=== PATIENT | male | born 1990 | race Caucasian/White ===

== ENCOUNTER 2021-09-10 07:41 | Inpatient (IN) | payer SELFPAY ==
[~2021-09-10] VITALS: Ht 188 cm; Wt 89.0 kg
[2021-09-10] MEDS ORDERED: LORAZEPAM 2MG/ML CPJ IV ONE (08:15)
[2021-09-10] MEDS ORDERED: CHLORDIAZEPOXIDE 25MG CAPSULE PO ONE (08:15)
[2021-09-10] MEDS ORDERED: FAMOTIDINE 20MG/2ML VIAL IV ONE (08:15)
[2021-09-10] MEDS ORDERED: ONDANSETRON HCL 4MG/2ML INJ IV ONE ×2 (08:15→10:00)
[2021-09-10 08:18] LABS: BASOPHILS % 1.2 % (0.0-2.0); EOSINOPHILS % 1.2 % (0.0-5.0); HEMATOCRIT. 45.3 % (42.0-52.0); HEMOGLOBIN. 15.6 g/dL (14.0-18.0); LYMPHOCYTES % 20.8 % (20.0-50.0); MEAN CORPUSCULAR HEMOGLOBIN 33.4 pg (28.0-32.0); MEAN CORPUSCULAR VOLUME 97.3 fL (80.0-94.0); MEAN PLATELET VOLUME 6.8 fl (7.4-10.4); MONOCYTES % 8.6 % (2.0-8.0); NEUTROPHILS % 68.2 % (40.0-76.0); PLATELET 247 x1000/uL (130-400); RED BLOOD CELL COUNT 4.66 mill/uL (4.7-6.1); RED CELL DISTRIBUTION WIDTH 12.7 % (11.6-14.6)
[2021-09-10 08:27] LABS: PROTHROMBIN TIME 10.9 sec (9.6-11.0)
[2021-09-10 08:28] LABS: CHLORIDE 103 mEq/L (98-107)
[2021-09-10] MEDS ORDERED: SODIUM CHLORIDE 0.9% 1,000 ML IV ONE ×2 (10:15→12:00)
[2021-09-10] MEDS ORDERED: METOCLOPRAMIDE HCL 10MG/2ML VIAL IV ONE (10:15)
[2021-09-10] MEDS ORDERED: DOCUSATE SODIUM 100MG CAPSULE PO PRN (13:45)
[2021-09-10] MEDS ORDERED: IPRATROPIUM/ALBUTEROL 0.5-3(2.5)MG/3ML NEB NEB PRN (13:45)
[2021-09-10] MEDS ORDERED: MAGNESIUM/ALUMINUM HYDROXIDE/SIMETHICONE 30ML UDC PO PRN (13:45)
[2021-09-10] MEDS ORDERED: ONDANSETRON HCL 4MG/2ML INJ IV PRN (13:45)
[2021-09-10] MEDS ORDERED: KETOROLAC 15MG/ML VIAL IV PRN (13:45)
[2021-09-10] MEDS ORDERED: ZOLPIDEM TARTRATE 5MG TABLET PO PRN (13:45)
[2021-09-10] MEDS ORDERED: NITROGLYCERIN 0.4MG TABLET SL SL PRN (13:45)
[2021-09-10] MEDS ORDERED: GUAIFENESIN 200MG/10ML SUGAR FREE UDC PO PRN (13:45)
[2021-09-10] MEDS ORDERED: CLONIDINE 0.1MG TABLET PO PRN (13:45)
[2021-09-10] MEDS ORDERED: ACETAMINOPHEN 325MG TABLET PO PRN ×2 (13:45)
[2021-09-10 14:31] LABS: ETHANOL BLOOD < 10 mg/dL; TOTAL IRON BINDING CAPACITY 443 ug/dL (250-450)
[2021-09-10 14:50] LABS: FOLIC ACID (FOLATE) SERUM 11.4 ng/mL (>5.38)
[2021-09-10] MEDS ORDERED: MVI, ADULT NO.1 10 ML, FOLIC ACID 1 MG, THIAMINE HCL 100 MG in SODIUM CHLORIDE 0.9% 1,0... IV SCH ×4 (15:00)
[2021-09-10] MEDS ORDERED: LORAZEPAM 2MG/ML CPJ IV PRN (15:15)
[2021-09-10 16:00] VITALS: BP 123/74
[2021-09-10] MEDS ORDERED: ENOXAPARIN 40MG/0.4ML SYR SUBCUT SCH (17:15)
[2021-09-10 17:37] VITALS: BP 140/78
[2021-09-10 20:00] VITALS: BP 141/65
[2021-09-10 22:11] LABS: CREATINE KINASE 365 IU/L (39-308); CREATINE KINASE MB FRACTION 1.5 ng/mL (0.5-3.6)
[2021-09-10] MEDS: CHLORDIAZEPOXIDE 25MG CAPSULE PO SCH (22:45)
[2021-09-11] VITALS: BP 126/73
[2021-09-11 02:12] LABS: CREATINE KINASE MB FRACTION 1.2 ng/mL (0.5-3.6)
[2021-09-11 04:00] VITALS: BP 131/88
[2021-09-11] MEDS: CHLORDIAZEPOXIDE 25MG CAPSULE PO SCH (05:49)
[2021-09-11 06:19] LABS: BASOPHILS % 0.8 % (0.0-2.0); EOSINOPHILS % 1.1 % (0.0-5.0); HEMATOCRIT. 40.2 % (42.0-52.0); HEMOGLOBIN. 13.7 g/dL (14.0-18.0); LYMPHOCYTES % 31.8 % (20.0-50.0); MEAN CORPUSCULAR HEMOGLOBIN 33.3 pg (28.0-32.0); MEAN CORPUSCULAR VOLUME 97.5 fL (80.0-94.0); MEAN PLATELET VOLUME 7.1 fl (7.4-10.4); MONOCYTES % 13.2 % (2.0-8.0); NEUTROPHILS % 53.1 % (40.0-76.0); PLATELET 210 x1000/uL (130-400); RED BLOOD CELL COUNT 4.12 mill/uL (4.7-6.1); RED CELL DISTRIBUTION WIDTH 13.1 % (11.6-14.6)
[2021-09-11 07:01] LABS: CHLORIDE 109 mEq/L (98-107)
[2021-09-11 08:00] VITALS: BP 127/77
[2021-09-11] MEDS ORDERED: PANTOPRAZOLE SODIUM 40 MG/VIAL IV SCH (09:00)
[2021-09-11] MEDS ORDERED: POTASSIUM CHLORIDE 20MEQ TABLET SR PO NR (11:00)
== END 2021-09-11 11:30 | disposition left against medical advice (07) | DRG 241 ==
LOC: ER 07:41 → 6EST 11:51 → ENRESERV 12:51 → 8WST 18:10
PROVIDERS: ADMIT Internal Medicine; ATTEND Internal Medicine
DX: K29.70 Gastritis, unspecified, without bleeding (principal); E80.6 Other disorders of bilirubin metabolism; F10.139 Alcohol abuse with withdrawal, unspecified; Y90.9 Presence of alcohol in blood, level not specified
CPT/HCPCS: 36415; 74176; 80053; 80320; 82550; 82553; 82607; 82746; 83036; 83540; 83550; 83735; 84100; 84443; 84484; 85025; 93306; 93970; 99285; C9113; J1650; J2060; J2405; J2765; J3411; J3490; J7030; G0480

== ENCOUNTER 2021-12-04 08:22 | Inpatient (IN) | payer MEDICAID ==
[~2021-12-04] VITALS: Ht 177.8 cm; Wt 79.0 kg
[2021-12-04] MEDS ORDERED: ONDANSETRON HCL 4MG/2ML INJ IV STA (08:38)
[2021-12-04] MEDS ORDERED: SODIUM CHLORIDE 0.9% 1,000 ML IV ONE ×2 (08:45→11:00)
[2021-12-04] MEDS ORDERED: HALOPERIDOL LACTATE 5MG/ML VIAL IM ONE (09:00)
[2021-12-04 09:08] LABS: BASOPHILS % 0.4 % (0.0-2.0); CHLORIDE 104 mEq/L (98-107); EOSINOPHILS % 0.2 % (0.0-5.0); HEMATOCRIT. 42.9 % (42.0-52.0); HEMOGLOBIN. 14.5 g/dL (14.0-18.0); LYMPHOCYTES % 7.1 % (20.0-50.0); MEAN CORPUSCULAR HEMOGLOBIN 33.1 pg (28.0-32.0); MEAN CORPUSCULAR VOLUME 98.1 fL (80.0-94.0); MEAN PLATELET VOLUME 6.9 fl (7.4-10.4); NEUTROPHILS % 88.3 % (40.0-76.0); PLATELET 253 x1000/uL (130-400); RED BLOOD CELL COUNT 4.38 mill/uL (4.7-6.1); RED CELL DISTRIBUTION WIDTH 12.3 % (11.6-14.6)
[2021-12-04 09:17] LABS: ETHANOL BLOOD < 10 mg/dL
[2021-12-04] MEDS ORDERED: ONDANSETRON HCL 4MG/2ML INJ ONE (09:45)
[2021-12-04] MEDS ORDERED: KETOROLAC 15MG/ML VIAL IV ONE (10:30)
[2021-12-04 11:03] LABS: CLARITY URINE CLEAR (CLEAR); COLOR URINE YELLOW (YELLOW); KETONES URINE 2+ (NEGATIVE); LEUKOCYTE ESTERASE URINE NEGATIVE (NEGATIVE); NITRITE URINE NEGATIVE (NEGATIVE); OCCULT BLOOD URINE NEGATIVE (NEGATIVE); PH URINE 7.5 (4.5-8.0); PROTEIN URINE NEGATIVE (NEGATIVE); SPECIFIC GRAVITY URINE 1.017 (1.005-1.030)
[2021-12-04] MEDS ORDERED: METOCLOPRAMIDE HCL 10MG/2ML VIAL IV ONE (11:30)
[2021-12-04] MEDS ORDERED: MORPHINE SULFATE 2 MG/ML CPJ (NOT FOR IM USE) IV PRN (14:00)
[2021-12-04] MEDS ORDERED: CLONIDINE 0.1MG TABLET PO PRN (14:00)
[2021-12-04] MEDS ORDERED: ONDANSETRON HCL 4MG/2ML INJ IV PRN (14:00)
[2021-12-04] MEDS ORDERED: ACETAMINOPHEN 325MG TABLET PO PRN (14:00)
[2021-12-04] MEDS ORDERED: DIPHENHYDRAMINE 50MG/ML VIAL IV PRN (14:00)
[2021-12-04] MEDS ORDERED: NALOXONE HCL 0.4MG/ML VIAL IV PRN (14:15)
[2021-12-04] MEDS: SODIUM CHLORIDE 0.9% 1,000 ML IV SCH (14:32)
[2021-12-05] VITALS: BP 106/67
[2021-12-05] MEDS: SODIUM CHLORIDE 0.9% 1,000 ML IV SCH (03:20)
[2021-12-05 04:00] VITALS: BP 110/64
== END 2021-12-05 08:30 | disposition left against medical advice (07) | DRG 249 ==
LOC: ER 08:30 → 6EST 13:48 → EDBEDREQ 14:01 → EDBEDREQTM 14:01 → ENRESERV 19:30
PROVIDERS: ADMIT Internal Medicine; ATTEND Internal Medicine
DX: R11.2 Nausea with vomiting, unspecified (principal); D72.829 Elevated white blood cell count, unspecified; F12.90 Cannabis use, unspecified, uncomplicated; R10.13 Epigastric pain
CPT/HCPCS: 36415; 71045; 74176; 80053; 80320; 81003; 84484; 85025; 93005; 93970; 99285; J1200; J1630; J1885; J2270; J2405; J2765; J7030; G0480